=== PATIENT | male | born 1995 | race Caucasian/White ===

== ENCOUNTER 2018-02-04 13:22 | Emergency (ER) | payer OTHER ==
[2018-02-04] MEDS ORDERED: CETI10CA8 PO (13:28)
--- NOTE | 2018-02-04 13:43 | ER Report ---
History and Physical Time Seen By MD: 13:38 Hx. 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 Bleeding is controlled. Tetanus status is unknown. Patient is right-hand dominant. Allergies: Coded Allergies: No Known Drug Allergies (Unverified , 02/04/18) Home Meds Reported Medications Cetirizine Hcl (ZYRTEC) 10 Mg Capsule, 10 MG PO QDAY, CAPSULE 02/04/18 Constitutional Vital Sign - Last 24 Hours 02/04/18 13:25 Temp 98.2 Pulse 91 Resp 16 B/P (MAP) 142/93 Pulse Ox 95 O2 Delivery Room Air Physical Exam Examination of the Left hand reveals no acute deformity. The patient is able to give a thumbs up sign, is able to make an okay sign, and is able to AB duct the fingers. Sensation is intact over the dorsal 1st web space, the volar aspect of the 2nd finger, and the volar aspect of the 5th finger. Capillary refill is brisk. This is a extremely well approximated 0.5 cm laceration at the tip of the left finger. This will only require repair with Steri-Strips no sutures are needed. Medical Decision Making ED Course/Re-evaluation ED Course Patient's tetanus status was updated. Wound was closed with Steri-Strips. Decision to Disposition Date: Feb 04, 2018 Decision to Disposition Time: 13:55 Depart Departure Latest Vital Signs Vital Signs Date Time Temp Pulse Resp B/P (MAP) Pulse Ox O2 Delivery O2 Flow Rate FiO2 02/04/18 13:25 98.2 91 16 142/93 95 Room Air Impression: Primary Impression: Finger laceration Condition: Improved Disposition: HOME OR SELF-CARE Patient Instructions: Finger Laceration (ED), Steristrips (ED) Problem Qualifiers Primary Impression: Finger laceration Encounter type: initial encounter Finger: ring finger Damage to nail status : without damage Foreign body presence: without foreign body Laterality: left Qualified Codes: S61.215A - Laceration without foreign body of left ring finger without damage to nail, initial encounter BERNADETTE GARCIA MD Feb 04, 2018 13:43
[2018-02-04] MEDS ORDERED: DIPHTH/TETANUS/ACEL. PERTUSSIS IM ONLY ONE (13:45)
[2018-02-04 14:02] VITALS: BP 126/86
== END 2018-02-04 14:03 | disposition home or self-care (01) ==
LOC: ER 13:42
DX: S61.215A Laceration without foreign body of left ring finger without damage to nail, initial encounter (principal); W31.89XA Contact with other specified machinery, initial encounter; Y93.G9 Activity, other involving cooking and grilling; Y92.511 Restaurant or cafe as the place of occurrence of the external cause; Y99.0 Civilian activity done for income or pay; Z23 Encounter for immunization
CPT/HCPCS: 90471; 90715; 99282